=== PATIENT | male | born 1955 | race Caucasian/White ===

== ENCOUNTER → 2016-11-08 | Outpatient (CLI) | payer OTHER | LOC: FIMAGING 11:08 | PROVIDERS: ATTEND Orthopaedic Surgery | DX: S72.22XK Displaced subtrochanteric fracture of left femur, subsequent encounter for closed fracture with nonunion (principal); Z96.89 Presence of other specified functional implants ==

== ENCOUNTER → 2017-05-10 | Outpatient (CLI) | payer OTHER | LOC: CIMAGING 13:23 | PROVIDERS: ATTEND Orthopaedic Surgery | DX: S72.22XD Displaced subtrochanteric fracture of left femur, subsequent encounter for closed fracture with routine healing (principal) | CPT/HCPCS: 73700-PO ==

== ENCOUNTER 2017-07-19 08:54 | Inpatient (IN) | payer OTHER ==
[2017-07-19] MEDS ORDERED: ceFAZolin 2 GM/SWFI 2 GM/20 ML SYR IVP ONE (09:01)
[2017-07-19] MEDS ORDERED: LR 1,000 ML IV ONE (09:03)
[2017-07-19] MEDS ORDERED: LIDOCAINE 1% 2 ML INJ ID PRN (09:03)
--- NOTE | 2017-07-19 10:22 | PDHPUP ---
History & Physical Update H&P update statement: This history and physical update is based on an assessment of the patient which was completed after admission or registration (within 24 hours), but prior to the surgery/procedure.
--- NOTE | 2017-07-19 10:22 | PDANEPAE ---
ANE History of Present Illness 61 for femur hardware removal and replacement. ANE Past Medical History - Cardiovascular History Hx Hypertension: Yes Hx Arrhythmias: No Hx Chest Pain: No Hx Coronary Artery / Peripheral Vascular Disease: No Hx CHF / Valvular Disease: No Hx Palpitations: No - Pulmonary History Hx COPD: No Hx Asthma/Reactive Airway Disease: No Hx Recent Upper Respiratory Infection: Yes Hx Oxygen in Use at Home: No Hx Sleep Apnea: No Sleep Apnea Screening Result - Last Documented: Positive Pulmonary History Comment: Recent URI w/ productive cough. History of LEAH, but has lost 45lbs and denies symptoms at this time. Never did utilize CPAP - Neurologic History Hx Cerebrovascular Accident: No Hx Seizures: No Hx Dementia: No - Endocrine History Hx Diabetes: Yes Endocrine History Comment: DM2 - diet controlled (no meds); glucose runs in 130s - Renal History Hx Renal Disorders: Yes Renal History Comment: kidney stones - Liver History Hx Hepatic Disorders: No - Neurological & Psychiatric Hx Hx Neurological and Psychiatric Disorders: Yes Neurological / Psychiatric History Comment: depression,anxiety - Cancer History Hx Cancer: No - Congenital Disorder History Hx Congenital Disorders: No - GI History Hx Gastrointestinal Disorders: Yes Gastrointestinal History Comment: gastritis - Other Health History Other Health History: bites finger nails - Chronic Pain History Chronic Pain: No - Surgical History Prior Surgeries: bilat femur fx. Left ankle fx. 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 ANE Review of Systems Review of systems is: negative Review of Systems: - Exercise capacity Exercise capacity: >=4 METS METS (RN): 4 METS ANE Patient History - Allergies Allergies/Adverse Reactions: No Known Allergies Allergy (Verified 07/01/17 16:53) - Home Medications Home medications: home medication list seen and reviewed Home Medications: Aspirin EC [Aspirin EC 81 mg (*)] 81 mg PO DAILY 07/01/17 [Last Taken 1 Week Ago ~07/12/17] Atorvastatin Calcium [Lipitor 20 mg (*)] 20 mg PO DAILY 07/01/17 [Last Taken 15:00] Cyanocobalamin [Vitamin B12 (*)] 100 mcg PO DAILY 07/01/17 [Last Taken 1 Week Ago ~07/12/17] Lisinopril [Zestril 40 mg (*)] 40 mg PO DAILY 07/01/17 [Last Taken 07/18/17 15: 00] Omeprazole [Prilosec 20 mg] 20 mg PO DAILY 07/01/17 [Last Taken 07/18/17 15:00] Sertraline HCl [Zoloft 50mg (*)] 100 mg PO DAILY 07/01/17 [Last Taken 07/18/17 15:00] - NPO status NPO Status: no food or drink >8 hours NPO Since - Liquids (Date): 07/19/17 NPO Since - Liquids (Time): 07:00 NPO Since - Solids (Date): 07/18/17 NPO Since - Solids (Time): 22:00 - Anes Hx Anes Hx: no prior problems - Smoking Hx Smoking Status: Never smoked Marijuana use: No - Alcohol Use Alcohol Use: Rarely - Family Anes Hx Family Anes Hx: neg - N/A Family Hx Anesthesia Complications: none ANE Labs/Vital Signs - Vital Signs Vital Signs: reviewed preoperatively; see RN documention for details Blood Pressure: 146/95 Heart Rate: 72 Respiratory Rate: 16 O2 Sat (%): 95 Height: 180.34 cm Weight: 97.522 kg ANE Physical Exam - Airway Neck exam: FROM Mallampati Score: Class 3 Mouth exam: poor dentition, dentures Mouth image: 1 - Misssing - Pulmonary Pulmonary: no respiratory distress - Cardiovascular Cardiovascular: regular rate and rhythym - ASA Status ASA Status: III ANE Anesthesia Plan Anesthesia Plan: general endotracheal anesthesia Total IV Anesthesia: No
[2017-07-19] MEDS ORDERED: fentaNYL 100 MCG/2 ML INJ ONE ×3 (10:45→14:48)
[2017-07-19] MEDS ORDERED: LIDOCAINE 2% 5 ML SDV ONE (10:46)
[2017-07-19] MEDS ORDERED: PROPOFOL 200 MG/20 ML VIAL ONE (10:46)
[2017-07-19] MEDS ORDERED: ROCURONIUM 50 MG/5 ML VIAL ONE ×2 (10:46→12:11)
[2017-07-19] MEDS ORDERED: ONDANSETRON 4 MG/2 ML VIAL ONE ×2 (10:51→16:00)
[2017-07-19] MEDS ORDERED: PHENYLEPHRINE HCL 100 MCG/ML SYR ONE (10:51)
[2017-07-19] MEDS ORDERED: DEXAMETHASONE 4 MG/ML VIAL ONE (10:51)
[2017-07-19] MEDS ORDERED: BUPIVACAINE/EPI 0.5% 30 ML SDV ONE (10:53)
[2017-07-19] MEDS ORDERED: LIDOCAINE 2% JELLY 5 ML TUBE ONE (10:53)
[2017-07-19] MEDS ORDERED: HYDROmorphONE/DILAUDID 2 MG/ML INJ ONE (12:18)
[2017-07-19] MEDS ORDERED: LR 500 ML IV PRN (12:52)
[2017-07-19] MEDS ORDERED: ONDANSETRON 4 MG/2 ML VIAL IVP PRN ×2 (12:52→14:17)
[2017-07-19] MEDS ORDERED: LABETALOL HCL 5 MG/ML 20 ML MDV IVP PRN (12:52)
[2017-07-19] MEDS ORDERED: NALOXONE HCL 0.4 MG/ML INJ IVP PRN (12:52)
[2017-07-19] MEDS ORDERED: OXYCODONE/APAP 5/325 TAB PO PRN (12:52)
[2017-07-19] MEDS ORDERED: PHENYLEPHRINE HCL 100 MCG/ML SYR IVP PRN (12:52)
[2017-07-19] MEDS ORDERED: SUGAMMADEX SODIUM 200 MG/2 ML VIAL IVP ONE (13:39)
--- NOTE | 2017-07-19 14:16 | POSTOPPROG ---
Post Op Note Date of Operation: 07/19/17 Surgeon: Shayan Meyer Shrimping Boat Captain: honorio Anesthesia: GET(General Endotracheal) Pre-op Diagnosis: Left femur non union Post-op Diagnosis: left femur non union Procedure: left femur non union repair, iliac crest bone frag excision, hwr, bone aspi Inf/Abcess present in the surg proc area at time of surgery?: No EBL: 100-500
[2017-07-19] MEDS ORDERED: TEMAZEPAM 15 MG CAP PO PRN (14:17)
[2017-07-19] MEDS ORDERED: HYDROmorphONE/DILAUDID 1 MG/ML INJ IVP PRN (14:17)
[2017-07-19] MEDS ORDERED: PROMETHAZINE HCL 25 MG/ML INJ IVP PRN (14:17)
[2017-07-19] MEDS ORDERED: HYDROmorphONE/DILAUDID 1 MG/ML INJ ONE ×2 (14:20→14:47)
[2017-07-19] MEDS: fentaNYL 100 MCG/2 ML INJ IVP PRN ×5 (14:21→15:15)
[2017-07-19] MEDS: HYDROmorphONE/DILAUDID 1 MG/ML INJ IVP PRN ×5 (14:26→15:15)
--- NOTE | 2017-07-19 14:27 | POSTANESTH ---
Post Anesthetic Evaluation Cardiovascular Status: Tx Hyper/Hypo-tension Respiratory Status: Normal, Stable, Similar to Pre-op Cond. Level of Consciousness/Mental Status: Can Participate in Eval, Mildly Sleepy, Arousable Pain Control: Inadeq, Add Tx Required Nausea/Vomiting Control: Adequate, Prn Tx Ordered Complications Possibly Related to Anesthesia: None Noted
[2017-07-19] MEDS ORDERED: D5W 1/2 NS W/ 20 KCl/L 1,000 ML IV SCH (14:30)
--- NOTE | 2017-07-19 14:49 | GOP ---
[f rep st] OPERATIVE REPORT DATE OF OPERATION: 07/19/2017 SURGEON: Shayan Meyer MD BRIDGE DESIGN ENGINEER: Royal Molina SA ANESTHESIA: General. PREOPERATIVE DIAGNOSIS: 1. Left femoral nonunion. 2. Left femoral retained hardware, including broken screw. 3. Left nonunion of anterior iliac crest. POSTOPERATIVE DIAGNOSIS: 1. Left femoral nonunion. 2. Left femoral retained hardware, including broken screw. 3. Left nonunion of anterior iliac crest. PROCEDURE PERFORMED: 1. Open treatment of femoral nonunion with exchange of intramedullary nailing. 2. Removal of hardware, including broken screw. 3. Treatment of iliac crest nonunion with removal of loose bone. 4. Injection of harvesting injection of iliac crest bone marrow aspirate into the nonunion site. FINDINGS: SPECIMENS: None. ESTIMATED BLOOD LOSS: 200 mL. INDICATIONS: A 61-year-old male who had this confirmed femoral nonunion on multiple CT scans. This would not heal. He went on to break the hardware, he is having continued pain. He also had a symptomatic nonunion of iliac crest osteotomy with a mobile fragment. He requested operative treatment of this. I got a radiographic and laboratory workup, and maximized him medically; he still felt he needed surgery and we elected to proceed. We discussed the risks of continued nonunion, need for further surgery, need for open surgery, nerve injury, nonunion, malunion, continued pain, bleeding. He elected to proceed. Informed consent was obtained. All questions were answered preoperatively. DESCRIPTION OF PROCEDURE: He was taken to the operative suite. He was placed lateral. I prepped out the posterior iliac crest, and harvested using a Jamshidi needle; I harvested 60 cc of bone mass which was later spun down and injected in the nonunion site after the final nail was implanted. This wound was dressed. The patient was then positioned on the fracture table, padded all bony prominences. He was sterilely prepped and draped in the usual fashion. Time-out was performed verifying site, side, location and there was agreement with the team. The procedure was begun by making an incision over his old incision over the anterior iliac crest, dissected down to the mobile, nonunited piece and removed it. This was quite large, about 4 cm x 2 cm x 1 cm. I then irrigated and closed this wound. I then made an incision over his old incisions distally for the leg and proximally. I removed the distal screw, removed the end of the proximal screw that had a head on it. I was able to push the broken part through after coring more of the femur through the medial side of the femur. A small incision was made in the femur to retrieve this. I then was able to place a guide on the blade on the lag screw, removed this and then thread in the adapter on the nail. We then went back and removed the nail. I then started reaming up, starting at 11, copiously reaming the nonunion site. I was able to get to a 15 reamer and selected a 14 nail, selected 20 mm longer so that I have a 14 mm nail, 420 in length, so the distal screw would have fresh bone. I was able to mallet this nail into place. I then placed the blade after measuring and drilling for this; I locked this into place statically. I then confirmed placement of this radiographically, took final x- rays. Then in the nonunion site, I injected the bone marrow aspirate with fluoroscopic guidance. I then, with perfect circles, placed a distal interlock screw in dynamic position. I took final x-rays of this. The whole construct was stable. I then thoroughly irrigated everything, and closed with 0 Vicryl, 2 -0 Vicryl, 3-0 Quill, and Dermabond. He was taken to PACU in stable condition. COMPLICATIONS: None. DRAINS: None. CONDITION: Stable. /[id number]/MODL MTDD
[2017-07-19] MEDS: OXYCODONE/APAP 5/325 TAB PO PRN ×3 (16:58→20:32)
--- NOTE | 2017-07-19 21:09 | POSTANESTH ---
Post Anesthetic Evaluation Cardiovascular Status: Normal, Stable, Similar to Pre-Op Cond Respiratory Status: Normal, Stable, Similar to Pre-op Cond. Level of Consciousness/Mental Status: Can Participate in Eval, Alert and Oriented Pain Control: Adequate, Prn Tx Ordered Nausea/Vomiting Control: Adequate, Prn Tx Ordered Complications Possibly Related to Anesthesia: None Noted
[2017-07-20] MEDS: OXYCODONE/APAP 5/325 TAB PO PRN ×4 (02:24→11:49)
[2017-07-20] MEDS: ASPIRIN EC 81 MG TAB PO SCH (08:21)
[2017-07-20] MEDS: CYANO/VITAMIN B12 100 MCG TAB PO SCH (08:21)
[2017-07-20] MEDS: PANTOPRAZOLE SODIUM 40 MG TAB PO SCH (08:23)
[2017-07-20] MEDS: ATORVASTATIN CALCIUM 20 MG TAB PO SCH (08:23)
[2017-07-20] MEDS: ENOXAPARIN 40 MG/0.4 ML SYR SC SCH (08:26)
[2017-07-20] MEDS: SERTRALINE HCL 50 MG TAB PO SCH (08:27)
[2017-07-20] MEDS ORDERED: NON-FORMULARY NEW DRUG (Omeprazole [Prilosec 20 Mg] 20 MG) PO SCH (09:00)
--- NOTE | 2017-07-20 09:35 | ASMTCASEMG ---
Living Arrangements What is your living Answers: With Spouse arrangement? Who do you live with? Type Of Residence What kind of residence do Answers: House you live in? Discharge Plan Comments Coordination Status Comments Notes: Pt is a 61 y/o man admitted for a femur repair and a hardware removal. Therapies have been ordered and awaiting recommendations. Needs are TBD at this time. CM to follow. Plan: TBD Date Signed: 07/20/2017 09:34 AM Electronically Signed By:SIERRA Burns
--- NOTE | 2017-07-20 14:36 | SOAPPROG ---
SOAP Progress Note Assessment/Plan: Assessment: Left femur non union repair 04/18 Plan: wbat LLE lovenox for dvt prophalaxsis PTOT 07/20/17 14:34 Subjective: pain in lower thigh Objective: Vital Signs Temp Pulse Resp BP Pulse Ox 36.9 C 93 16 139/99 H 96 07/20/17 11:51 07/20/17 11:51 07/20/17 11:51 07/20/17 11:51 07/20/17 11:51 Microbiology 07/19/17 13:40 Gram Stain - Final Leg - Tissue 07/19/17 13:40 Mycobacterial Smear (KENDALL) - Final Leg - Tissue Laboratory Results 07/20/17 05:05 07/20/17 05:05 07/19/17 07/20/17 07/21/17 05:59 05:59 05:59 Intake Total 3045 Output Total 2225 Balance 820 dressing cdi nvi distally ICD10 Worksheet Patient Problems: Problems Problem Status Onset Femur fracture, left Acute - ICD10 Problem Qualifiers (1) Femur fracture, left Qualifiers: Encounter type: subsequent encounter Femur location: subtrochanteric Fracture healing: with nonunion
[2017-07-20] MEDS: oxyCODONE IR 5 MG TAB PO PRN ×3 (14:44→19:53)
[2017-07-20] MEDS: HYDROmorphONE/DILAUDID 2 MG/ML INJ IVP PRN ×2 (21:49→23:06)
--- NOTE | 2017-07-21 07:35 | SOAPPROG ---
SOAP Progress Note Assessment/Plan: Assessment: Left femur non union repair 04/18 Plan: wbat LLE lovenox for dvt prophalaxsis PTOT doing well likely home today 07/20/17 14:34 07/21/17 07:35 Subjective: pain improving Objective: Vital Signs Temp Pulse Resp BP Pulse Ox 36.6 C 72 15 117/75 98 07/21/17 04:00 07/21/17 04:00 07/21/17 04:00 07/21/17 04:00 07/21/17 04:00 Microbiology 07/19/17 13:40 Gram Stain - Final Leg - Tissue 07/19/17 13:40 Mycobacterial Smear (KENDALL) - Final Leg - Tissue Laboratory Results 07/20/17 05:05 07/20/17 05:05 07/20/17 07/21/17 07/22/17 05:59 05:59 05:59 Intake Total 3045 Output Total 2225 800 Balance 820 -800 dressings dry ICD10 Worksheet Patient Problems: Problems Problem Status Onset Femur fracture, left Acute - ICD10 Problem Qualifiers (1) Femur fracture, left Qualifiers: Encounter type: subsequent encounter Femur location: subtrochanteric Fracture healing: with nonunion
[2017-07-21 08:09] VITALS: BP 110/72; RESP 16; TEMP 98.1; O2SAT 97
[2017-07-21] MEDS: CYANO/VITAMIN B12 100 MCG TAB PO SCH (08:46)
[2017-07-21] MEDS: oxyCODONE IR 5 MG TAB PO PRN ×3 (08:46→13:39)
[2017-07-21] MEDS: PANTOPRAZOLE SODIUM 40 MG TAB PO SCH (08:47)
[2017-07-21] MEDS: ASPIRIN EC 81 MG TAB PO SCH (08:47)
[2017-07-21] MEDS: SERTRALINE HCL 50 MG TAB PO SCH (08:47)
[2017-07-21] MEDS: ATORVASTATIN CALCIUM 20 MG TAB PO SCH (08:47)
[2017-07-21] MEDS: ENOXAPARIN 40 MG/0.4 ML SYR SC SCH (08:47)
--- NOTE | 2017-07-21 10:41 | GDS ---
[f rep st] DISCHARGE SUMMARY ADMISSION DIAGNOSIS: Left femoral nonunion. HOSPITAL COURSE: He was admitted to the hospital after repair of left femoral nonunion, excision of a loose piece of bone, nonunion of his iliac crest, and hardware removal and bone marrow aspirate. Otf lopez progressed well with this pain and therapy over the following 2 days. His cultures remain negative at time of discharge. He met criteria for discharge. CONSULTING PHYSICIANS: None. PROCEDURES: As above. CONDITION: Stable. DISPOSITION: He is sent home. DISCHARGE INSTRUCTIONS: He was sent home on a regular diet. He was sent home weightbearing as dipak ated. He will be allowed to shower and will reinforce his dressings. We will remove these at his [facility]. He is scheduled to see me in 8 days for a follow-up appointment. He has this appointment. He will call or come back to the hospital if he has chest pain, shortness of breath, continued pain, or other concerns. He was given prescriptions for oxycodone for pain, Ultram for pain, Zofran for na usea, and Lovenox 8 days for DVT prophylaxis. He will take 1 aspirin 325 mg per day after the Loveno x is finished for additional DVT prophylaxis. He will wear his NANDA hose for 2 weeks. /[id number]/MODL
[2017-07-21 12:50] VITALS: PULSE 60
--- NOTE | 2017-07-21 16:11 | ASDISCHSUM ---
Discharge Information Plan Status:Home with No Needs Medically Cleared to Leave: Discharge Date:07/21/2017 02:23 PM CM D/C Disposition:Home, Routine, Self-Care ADT D/C Disposition:Home, Routine, Self-Care Projected Discharge Date:07/21/2017 02:23 PM Transportation at D/C: Discharge Delay Reason: Follow-Up Date:07/21/2017 02:23 PM Discharge Slot: Final Diagnosis: Placement Information Patient Contact Information Contact Name:GIULIA Relationship: Address:[facility] [address] [facility] City:[facility] [place] Phone: State/Zip Code:[place] [address] Email: Financial Information Financial Class:Worker's Compensation Primary Plan Desc:[employer] [facility] Primary Plan Number:[id number] Secondary Plan Desc: Secondary Plan Number: Assessment Information [facility] Initial CM Assessment Living Arrangements What is your living Answers: With Spouse arrangement? Who do you live with? Type Of Residence What kind of residence do Answers: House you live in? Discharge Plan Comments Coordination Status Comments Notes: Pt is a 61 y/o man admitted for a femur repair and a hardware removal. Therapies have been ordered and awaiting recommendations. Needs are TBD at this time. CM to follow. Plan: TBD Date Signed: 07/20/2017 09:34 AM Electronically Signed By:SIERRA Burns Case Management Discharge Plan Note Case Management Discharge Discharge Order Complete? Answers: Yes Patient to Obtain Answers: via Family Medications Transportation Arranged Answers: Family/Friends Family Notified Answers: Yes Notes: on-site Discharge Comments Notes: Reviewed chart and discussed w/RN. Pt will dc home w/ and will follow up with outpt PT. Date Signed: 07/21/2017 10:20 AM Electronically Signed By:Bonnie Felton RN Intervention Information
== END 2017-07-21 14:23 | disposition home or self-care (01) | DRG 481 ==
LOC: F3N 08:54
PROVIDERS: ADMIT Orthopaedic Surgery; ATTEND Orthopaedic Surgery
PROC: 0QP704Z Removal of Internal Fixation Device from Left Upper Femur, Open Approach (ICD-10-PCS; principal; 2017-07-19 10:30)
PROC: 0QS706Z Reposition Left Upper Femur with Intramedullary Internal Fixation Device, Open Approach (ICD-10-PCS; principal; 2017-07-19 10:30)
PROC: 0QC30ZZ Extirpation of Matter from Left Pelvic Bone, Open Approach (ICD-10-PCS; principal; 2017-07-19 10:30)
PROC: 07DR3ZZ Extraction of Iliac Bone Marrow, Percutaneous Approach (ICD-10-PCS; principal; 2017-07-19 10:30)
DX: S72.92XK Unspecified fracture of left femur, subsequent encounter for closed fracture with nonunion (principal); T84.195A Other mechanical complication of internal fixation device of left femur, initial encounter; S32.302 Unspecified fracture of left ilium; M24.052 Loose body in left hip; I10 Essential (primary) hypertension; G47.33 Obstructive sleep apnea (adult) (pediatric); E11.9 Type 2 diabetes mellitus without complications
CPT/HCPCS: 97116-GP; 97161-GP; 97165-GO; 97535-GO; C1713; J0690; J1100; J1170; J1650; J2370; J2405; J2704; J3010